=== PATIENT | female | born 1955 | race Caucasian/White ===

== ENCOUNTER → 2021-04-10 13:09 | Outpatient (CLI) | payer MEDICARE, SELFPAY ==
--- NOTE | ~2021-04-10 | XR_ITS ---
EXAMINATION: XR knee LT min 4V DATE: 04/10/2021 13:31 INDICATION: Left knee pain with prior fixation of a tibial plateau fracture TECHNIQUE: Weight bearing anteroposterior and Fournier, sunrise, and flexed lateral views of the lef t knee were obtained COMPARISON: 10/08/2016 FINDINGS: Again seen is an old healed fracture of the lateral tibial plateau with lag screw fixation. There is residual irregular contour to the articular surface at the lateral tibial plateau. No acute fracture. There is new mild joint space narrowing at the medial compartment. No significant interval change in mild patellofemoral osteoarthritis. No left knee joint effusion. A prior loose osteochondral body at the suprapatellar pouch is no longer visualized IMPRESSION: 1. 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 3. Stable appearance of an old healed lateral tibial plateau fracture with screw fixation. Reviewed, dictated and finalized at location B. IMPRESSION: 1. Mild tricompartmental osteoarthritis at the left knee with progression in th e medial compartment. 3. Stable appearance of an old healed lateral tibial plateau fracture with scre w fixation.
== END ==
PROVIDERS: PCP Family Medicine; Visit Provider Family Medicine
DX: M17.12 Unilateral primary osteoarthritis, left knee (principal)
CPT/HCPCS: 73564